=== PATIENT | female | born 1940 | race Caucasian/White ===

== ENCOUNTER 2023-07-16 10:07 | Day surgery (SDC) | payer MEDICARE, BC, SELFPAY ==
[2023-07-01 12:01] VITALS: BMI 29.6
--- NOTE | 2023-07-16 06:00 | DI.RAD.S_ITS ---
PROCEDURE: XR SHOULDER LT 1V INDICATIONS: left total shoulder arthroplasty TECHNIQUE: 1 view of the shoulder were acquired. COMPARISON: None. FINDINGS: Bones: Status post total left shoulder arthroplasty with prosthetic components in appropriate position. No acute fracture. Soft tissues: Expected postoperative appearance of the soft tissues. IMPRESSION: Expected postoperative appearance status post total left shoulder arthroplasty. Dictated by: Merari Pino M.D. on 07/17/2023 at 15:21 Approved by: Merari Pino M.D. on 07/17/2023 at 15:23
[2023-07-16 11:11] VITALS: BP 140/77; PULSE 116; RESP 19; TEMP 36.4; O2SAT 98
[2023-07-16 11:13] VITALS: BMI 29.6
[2023-07-16] MEDS: ACETAMINOPHEN 325 MG TABLET 975 MG PO (11:31)
--- NOTE | 2023-07-16 11:35 | PM.HP.1 ---
History of Present Illness History of Present Illness Date Patient Seen: 07/16/23 Time Patient Seen: 11:35 Chief complaint: INPT Narrative: Pepper is an 83-year-old female here today for left reverse total shoulder arthroplasty. She has not had any changes in her symptoms since I last saw her. She states life is difficult because of how painful her left shoulder is. She would a recent cat scratch to her right hand which is healing well no signs of infection at this time. [facility] Medical History (Updated 07/15/23 @ 09:19 by Clarissa Ferrari RN) Gastric ulcer DVT (deep venous thrombosis) Hypothyroid Osteoporosis Obesity Fibromyalgia Depression DJD (degenerative joint disease) Cancer Arthritis Surgical History (Updated 07/15/23 @ 09:20 by Clarissa Ferrari RN) H/O: hysterectomy History of hip replacement H/O gastric bypass Social History household members: none Smoking Status: Never smoker alcohol intake: current Meds Home Medications and Allergies Home Medications Medication Instructions Recorded Confirmed Type metronidazole 500 mg tablet 500 mg PO 3XD 07/16/23 07/16/23 History mupirocin 2 % topical ointment topical BID 07/16/23 History rivaroxaban 20 mg tablet (Xarelto) 20 mg PO DAILY 07/16/23 07/16/23 History sertraline 100 mg tablet 100 mg PO DAILY 07/16/23 07/16/23 History sulfamethoxazole 800 1 tab PO BID 07/16/23 07/16/23 History mg-trimethoprim 160 mg tablet thyroid (pork) 90 mg tablet (BLOW MACHINE TENDER STARCH SPRAYING 67.5 mg PO DAILY 07/16/23 07/16/23 History Thyroid) Allergies Allergy/AdvReac Type Severity Reaction Status Date / Time ampicillin Allergy Verified 07/16/23 10:54 latex Allergy Verified 07/16/23 10:54 liothyronine Allergy Verified 07/16/23 10:54 Penicillins Allergy Verified 07/16/23 10:54 Tetanus Vaccines and Toxoid Allergy Verified 07/16/23 10:54 codeine AdvReac Verified 07/16/23 10:54 cortisone AdvReac Verified 07/16/23 10:54 hydrocodone AdvReac Verified 07/15/23 08:43 oxycodone AdvReac Verified 07/16/23 10:54 Review of Systems Review of Systems ROS: Yes All systems reviewed with the patient and are negative except as otherwise documented Exam Vital Signs (past 8 hours): - 07/16/23 11:11 Temperature 97.5 F L Pulse Rate 116 H Respiratory Rate 19 Blood Pressure 140/77 Pulse Oximetry 98 Oxygen Delivery Method Room Air Oxygen Delivery Method Room Air Narrative Exam Narrative: HEENT: Head atraumatic eyes anicteric moist mucous membranes Cardiovascular: Palpable peripheral pulses extremities are warm and well perfused Respiratory: Breathing comfortably on room air Psychiatric: Appropriate mood and affect Neuro: No acute deficits Musculoskeletal: Exam of the left upper extremity demonstrates very limited range of motion secondary to pain. Did not do provocative maneuvers due to known condition. Assessment & Plan Assessment & Plan narrative: Assessment: 83-year-old female with left glenohumeral arthritis Plan: As discussed previously our plan is to go forward with a left reverse total shoulder arthroplasty. Risks and benefits of surgery were discussed again including the risk of infection, damage to internal structures, bleeding, nerve injury, instability, need for revision surgery, blood clots, anesthesia and . No guarantees were made regarding outcomes. Patient expressed understanding and accepted these risks and wished to go forward with surgery and consent was signed.
[2023-07-16] MEDS: TRANEXAMIC ACID 1,000 MG VIAL 1000 MG INJ (12:40)
[2023-07-16] MEDS: CLINDAMYCIN 900 MG/50 ML PIGGYBACK 50 MG IV (12:40)
--- NOTE | 2023-07-16 13:11 | SUR.OPER ---
Beach chair with Cheikhn/Pietro shoulder positioner. Lower body on padded OR bed. Head in foam padded head cradle, secured with straps. Non-operative arm secured <90 degrees abduction. Pillow X 2 under knees. Safety belt at thigh. Cloth tape over blanket over lower legs.
[2023-07-16] MEDS: BUPIVACAINE 0.25% (PF) 30 ML, EPINEPHrine 0.15 MG INJ (13:31)
--- NOTE | 2023-07-16 14:06 | P.OP_ITS ---
Operative Date/Time/Diagnoses Date of procedure: 07/16/23 Time of procedure: 14:06 Pre-op diagnosis: Left glenohumeral arthritis Post-op diagnosis: same Procedure & Clinicians Procedure: Left reverse total shoulder arthroplasty Same procedure as scheduled: Yes Indications: Indications: This is a 83-year-old female who has glenohumeral arthritis. Symptoms have been present for years, insidious onset. Patient has failed conservative therapy including injections, physical therapy, anti-inflammatories and activity modification. After extensive discussion in clinic, they wished to go forward with surgery. Risks and benefits were described including the risk of infection, bleeding, damage to internal structures including nerves. We also discussed the risk of failure of surgery and the need for revision surgery as well as the risk of anesthesia. The patient expressed understanding with these risks and wished to go forward with surgery. Surgeon: Rupert Marsh Pet Feeder: Xochitl Porter Click Yes if Unassisted: No Anesthesia Type: General Operative Notes Findings: Findings: Osteoarthritis of the glenoid and humeral head as noted on preoperative imaging and under direct visualization Closure Type: primary Specimen(s): none sent Prosthetic devices, grafts, tissues, transplants, or devices: Tornier implants Base plate: standard 25 mm, +3 mm offset Glenosphere: Standard 36 mm Stem: Perform 2+ Poly: +0 concentric Estimated Blood Loss (mL): 75 Blood products transfused: none Procedure in detail: Patient was seen in the preoperative holding unit. The correct left shoulder was identified and marked with my initials. Again we discussed the risks and benefits of surgery and they wished to go forward with surgery. The patient was brought back to the operating room and placed supine on the operating table. Smooth endotracheal intubation was performed by anesthesia. All prominences were padded and they were placed into the beach chair position. Intravenous antibiotics were given. The left shoulder was then prepped with the standard sterile preparation and draping. A time-out was then performed in my initials were again identified on the correct shoulder. 1 g of IV tranexamic acid was given. A standard deltopectoral incision was made. Skin flaps were made. The cephalic vein was identified and retracted laterally. This was protected throughout the remainder of the case. Sharp dissection was made along the deltoid, subacromial and subcoracoid space to release adhesions. The conjoined tendon was identified and the axillary nerve was palpated and continuous using the tug test. It was protected throughout the remainder of the case. A brown retractor was placed underneath the deltoid muscle and a darach retractor underneath the conjoint tendon. The anterior circumflex artery and associated veins on the lower border of the subscapularis were identified and tied off using 0-Vicryl. The biceps tendon was identified in the bicipital groove. This was released from its sheath, and taken from its origin on the glenoid and tied into the pectoralis tendon for a solid tenodesis. We then began a subscapularis peel. The subscapu lacie was tagged with an Ethibond suture. A 360 degree circumferential release of the subscapularis was performed with protection of the axillary nerve. The coracohumeral ligament was released at the base of the coracoid. The coracoacromial ligament was left intact. The shoulder was then dislocated. Osteophytes were removed using combination of rongeur and osteotome. The rotator cuff was noted to be intact. An intramedullary guide was used set at version of 30?. Using an oscillating saw a conservative humeral head cut was made. Impaction reamers were reamed up to a size 2 stem with a built-in angle 135?. A neck protector was placed. Attention was then turned to the glenoid. After retracting the humeral head posteriorly a circumferential release was performed of the capsule with protection of the axillary nerve. The labrum was then released starting at the biceps anchor and going around the rim a small amount of triceps was released from the inferior glenoid. A center guide pin was then placed using the guide, followed by Reamer. After adequate cartilage was removed the center drill hole was drilled and measured. The base plate was then implanted and screwed into place. The superior drill hole was drilled and filled in a nonlocking fashion, followed by the inferior and anterior holes in locking fashion, the posterior hole was also filled. A 36 standard glenosphere was then selected and screwed into place onto the base plate. Turning back to the humerus, the humeral head was delivered and trialed with a 0 concentric. The arm was taken through range of motion and this was felt to be stable. The trial was then removed and a dilute Betadine wash was then performed with 1 L of sterile saline. Before placing the final implant, drill holes were made in the bicipital groove for the subscapularis repair, and sutures were passed through the drill holes. The final stem was then impacted into the humerus. The shoulder was then reduced and again brought through range of motion and was felt to be stable. The interval was then closed using #2 Ethibond. The subscapularis was then repaired using a modified racking hitch with nice loupes. The deltopectoral interval was then closed with #2 Ethibond. The skin was closed with 2-0 PDS and Monocryl followed by Aquacel dressing. Patient was awoken from anesthesia and brought back to the postoperative re covery unit without issue. They were placed into a sling. Assisting participation: This operation could not have been safely performed (without compromising the technical results or length of the procedure) without the assistance of a skilled salesperson surgical appliances. The salesperson surgical appliances was medically necessary for proper positioning, retraction and manipulation of instruments, proper exposure, graft prep, and manipulation of tissue. Complications: none Post-operative Condition: stable Disposition: PACU Plan for aftercare: Postoperative instructions: Sling to remain on for 6 weeks. No external rotation past neutral for 6 weeks. Okay for the sling to come off for shower. Okay to shower over the Aquacel dressing. If any water gets underneath the dressing, remove the dressing. First postoperative visit in 2 weeks.
[2023-07-16 14:20] VITALS: BP 154/54; PULSE 114; RESP 10; TEMP 36.2; O2SAT 92
[2023-07-16 14:25] VITALS: BP 137/76; PULSE 103; RESP 20; O2SAT 93
[2023-07-16 14:30] VITALS: BP 151/72; PULSE 100; RESP 20; O2SAT 95
[2023-07-16 14:45] VITALS: BP 133/58; PULSE 92; RESP 17; O2SAT 94
[2023-07-16 15:23] VITALS: BP 143/56; PULSE 84; RESP 19; TEMP 36.8; O2SAT 94
== END 2023-07-16 15:57 | disposition home or self-care (01) ==
LOC: AC 14:38 → OR 07-17 10:37
PROVIDERS: PCP Family Medicine; Referring Provider Orthopaedic Surgery; Visit Provider Orthopaedic Surgery
PROC: (CPT 23472; principal; 2023-07-16 12:45)
DX: M19.012 Primary osteoarthritis, left shoulder (principal); Z86.718 Personal history of other venous thrombosis and embolism
CPT/HCPCS: 23472; 73020; 73030; 93005; C1776; J0171; J1100; J2405; J2704; J3010